=== PATIENT | female | born 2000 | race Asian ===

== ENCOUNTER → 2018-08-15 | Outpatient (CLI) | payer OTHER ==
--- NOTE | 2018-08-15 14:31 | CPEKG ---
Test Reason : OPEN Blood Pressure : / mmHG Vent. Rate : 080 BPM Atrial Rate : 080 BPM P-R Int : 160 ms QRS Dur : 082 ms QT Int : 396 ms P-R-T Axes : 080 071 082 degrees QTc Int : 457 ms SINUS RHYTHM Confirmed by Shashi Sheridan ([id number]) on 08/15/2018 2:31:14 PM Referred By: Confirmed By:Shashi Sheridan
== END ==
LOC: FCP 13:06
PROVIDERS: ATTEND Psychiatry & Neurology Child & Adolescent Psychiatry
DX: R42 Dizziness and giddiness (principal); R00.0 Tachycardia, unspecified

== ENCOUNTER → 2018-08-26 | Outpatient (CLI) | payer OTHER ==
--- NOTE | 2018-08-26 13:47 | CPEEG ---
DATE OF STUDY: ORDERING PHYSICIAN: Dr. Fountain. INTERPRETATION: Normal EEG during wakefulness and sleep. There were no potentially epileptogenic ab normalities present during the awake or sleep recordings. REPORT: This EEG contains 10 Hz alpha activity to the posterior head regions. There was no abnormal activation at rest or during photic stimulation or hyperventilation. The patient became drowsy and fell into sustained sleep during the study. There was no abnormal activation during drowsiness, slee p, or during times of arousal. Copy requested to: Dr. Fountain /[id number]/MODL
== END ==
LOC: FCPNEURO 10:27
PROVIDERS: ATTEND Psychiatry & Neurology Neurology
DX: R56.9 Unspecified convulsions (principal)

== ENCOUNTER 2019-05-24 11:21 | Emergency (ER) | payer OTHER | END 2019-05-24 13:11 | disposition home or self-care (01) ==